=== PATIENT | male | born 1995 | race African-American/Black ===

== ENCOUNTER 2020-05-26 00:32 | Emergency (ER) | payer MEDICAID ==
[~2020-05-26] VITALS: Ht 177.8 cm; Wt 95.3 kg
--- NOTE | 2020-05-26 00:55 | NUR ---
ED Nurse Note: NVD, x2-3 days, no abdominal pain, unable to tolerate anything by mouth, aox4, ambulatory, febrile on triage all other vitals stable
[2020-05-26 01:03] VITALS: BP 121/74
--- NOTE | 2020-05-26 01:04 | NUR ---
pt aox3 c/o n/v/d. states he's only able to keep water down. v/s stable. pt in no distress. will continue to monitor pt
--- NOTE | 2020-05-26 01:06 | Emergency Room Report ---
History of Present Illness General Chief Complaint: Nausea, Vomiting, and Diarrhea Source: Patient Present Illness HPI This is a 25-year-old male with no past medical history. He presents with chief complaint of nausea and vomiting. Onset for last 3 to 4 days. Unable keep anything down. He has no pain. No fever or chills. He also complained of some mild diarrhea. Denies any recent alcohol or drug use. Never had this problem before. No prior abdominal surgery. Allergies: Coded Allergies: No Known Allergies (Unverified , 05/26/20) COVID-19 Screening Contact w/high risk pt: No Experienced COVID-19 symptoms?: No COVID-19 Testing performed REQUISITION APPROVER: No Patient History Past Medical History: see triage record, old chart reviewed Past Surgical History: none Pertinent Family History: none Social History: Denies: smoking Immunizations: other Reviewed Nursing Documentation: PMH: Agreed; PSxH: Agreed Nursing Documentation-PMH Hx Cardiac Problems: No Hx Hypertension: No Hx Pacemaker: No Hx Asthma: No Hx COPD: No Hx Diabetes: No Hx Cancer: No Hx Gastrointestinal Problems: No Hx Dialysis: No History Of Psychiatric Problem: No Hx Neurological Problems: No Hx Cerebrovascular Accident: No Hx Seizures: No Review of Systems Eye: Denies: eye pain, blurred vision ENT: Denies: ear pain, nose congestion, throat swelling Respiratory: Denies: cough, shortness of breath Cardiovascular: Denies: chest pain, palpitations Gastrointestinal: Reports: nausea, vomiting; Denies: abdominal pain, diarrhea Musculoskeletal: Denies: back pain, joint pain Skin: Denies: rash Neurological: Denies: headache, numbness Endocrine: Denies: increased thirst, increased urine Hematologic/Lymphatic: Denies: easy bruising All Other Systems: negative except mentioned in HPI Physical Exam Vital Signs Date Time Temp Pulse Resp B/P (MAP) Pulse Ox O2 Delivery O2 Flow Rate FiO2 05/26/20 00:43 101.8 88 20 121/74 (90) 100 Room Air Vitals with fever Sp02 EP Interpretation: reviewed, normal General Appearance: well appearing, no apparent distress, alert Head: normocephalic, atraumatic Eyes: bilateral eye PERRL, bilateral eye EOMI ENT: hearing grossly normal, normal pharynx Neck: full range of motion, supple, no meningismus Respiratory: chest non-tender, lungs clear, normal breath sounds Cardiovascular #1: regular rate, rhythm, no murmur Gastrointestinal: normal bowel sounds, non tender, no mass, no organomegaly, no bruit, non-distended Musculoskeletal: back normal, normal range of motion, gait/station normal Psychiatric: mood/affect normal Medical Decision Making Diagnostic Impression: Primary Impression: Nausea, vomiting, and diarrhea ER Course Patient presents with nausea and vomiting. Laboratory data is unremarkable. Elevated leukocyte and basophil count probably points toward more ago viral illness. His CT scans nonspecific. He has no abdominal pain right now. I doubt appendicitis in this patient. No evidence of an acute abdomen or obstruction. He is eating drinking now. Will discharge home. CT/MRI/US Diagnostic Results CT/MRI/US Diagnostic Results : Imaging Test Ordered: CT abdomen pelvis Impression Read by radiologist. Appendix measures up to 0.6 cm without surrounding inflammation. Last Vital Signs Date Time Temp Pulse Resp B/P (MAP) Pulse Ox O2 Delivery O2 Flow Rate FiO2 05/26/20 01:03 101.8 20 121/74 100 Room Air 05/26/20 00:43 88 Status: improved Disposition: HOME, SELF-CARE Condition: Stable Scripts Ibuprofen* (MOTRIN*) 600 Mg Tablet 600 MG ORAL Q6H PRN for For Pain, #30 TAB 0 Refills Prov: Uzair Hdz MD 05/26/20 Ondansetron (Zofran) 4 Mg Tablet 4 MG ORAL Q6H PRN for Nausea & Vomiting, #10 TAB 0 Refills Prov: Uzair Hdz MD 05/26/20 Referrals: NOT CHOSEN [facility]/,REFERRING (PCP) Additional Instructions: Advance diet as tolerated. Follow-up with your doctor in 2 to 3 days for rechec k. Return if worse. Uzair Hdz MD May 26, 2020 01:06
[2020-05-26 01:11] LABS: BASOPHILS % (AUTO) 2.4 % (0.0-2.0); EOSINOPHILS % (AUTO) 0.7 % (0.0-3.0); HEMATOCRIT 47.3 % (42.0-52.0); HEMOGLOBIN 16.4 G/DL (14.2-18.0); LYMPHOCYTES % (AUTO) 22.8 % (20.0-45.0); MEAN CORPUSCULAR VOLUME 88 FL (80-99); MONOCYTES % (AUTO) 13.7 % (1.0-10.0); NEUTROPHILS % (AUTO) 60.5 % (45.0-75.0); PLATELET COUNT 189 K/UL (150-450); RED BLOOD COUNT 5.39 M/UL (4.70-6.10); WHITE BLOOD COUNT 7.4 K/UL (4.8-10.8)
--- NOTE | 2020-05-26 01:12 | NUR ---
pt medicated per mar
[2020-05-26 01:18] LABS: APPEARANCE,URINE CLEAR; BILIRUBIN, URINE NEGATIVE (NEGATIVE); COLOR,URINE PALE YELLOW; GLUCOSE, URINE (UA) NEGATIVE (NEGATIVE); KETONES,URINE 3+ (NEGATIVE); LEUKOCYTE ESTERASE ,URINE NEGATIVE (NEGATIVE); NITRITE,URINE NEGATIVE (NEGATIVE); PH,URINE 6 (4.5-8.0); PROTEIN,URINE 2+ (NEGATIVE); UROBILINOGEN,URINE NORMAL MG/DL (0.0-1.0)
[2020-05-26 01:23] LABS: ANION GAP 11 mmol/L (5-15); BLOOD UREA NITROGEN 11 mg/dL (7-18); CALCIUM 9.6 MG/DL (8.5-10.1); CARBON DIOXIDE 25 MMOL/L (21-32); CHLORIDE 99 MMOL/L (98-107); CREATININE 1.5 MG/DL (0.55-1.30); POTASSIUM 3.5 MMOL/L (3.5-5.1); SODIUM 135 MMOL/L (136-145)
[2020-05-26 01:27] LABS: ALANINE AMINOTRANSFERASE 24 U/L (12-78); ALBUMIN/GLOBULIN RATIO 0.9 (1.0-2.7); ALKALINE PHOSPHATASE 89 U/L (46-116); ASPARTATE AMINO TRANSFERASE 18 U/L (15-37); BILIRUBIN,TOTAL 0.5 MG/DL (0.2-1.0)
--- NOTE | 2020-05-26 02:27 | Diagnostic Imaging Report ---
EXAM: CT Abdomen and Pelvis Without Intravenous Contrast CLINICAL HISTORY: ABD PAIN Additional clinical history: Vomiting TECHNIQUE: Axial computed tomography images of the abdomen and pelvis without intravenous contrast. CTDI is 10.40 mGy and DLP is 554.40 mGy-cm. One or more of the following dose reduction techniques were used: automated exposure control, adjustment of the mA and/or kV according to patient size, use of iterative reconstruction technique. COMPARISON: No prior studies are available for comparison FINDINGS: Linear scarring of the left lower lobe. No pleural effusion of the visualized lung bases. Solid organ evaluation is limited due to noncontrast technique. The unenhanced liver, gallbladder, pancreas, spleen, adrenals, and kidneys are unremarkable. There is no hydronephrosis. Evaluation of the bowel is markedly limited due to lack of oral contrast. Stomach is underdistended, limiting evaluation. There is no small bowel distention to suggest obstruction. The appendix measures up to 0.6 cm, borderline, without significant surrounding inflammation. However, there is a subcentimeter nodule associated with the body of the appendix measuring 0.6 cm on image 101 series 3, suboptimally characterized due to lack of contrast. This finding may represent a periappendiceal node versus other mass lesion associated with the appendix. Further evaluation with contrast-enhanced CT or MR is recommended for better characterization. There is no ascites or free air. Additional small volume nodes are identified throughout the abdomen and pelvis. Urinary bladder is underdistended, limiting evaluation. Prostate size is within normal limits. Few phleboliths are seen of the pelvis. No aneurysm of the abdominal aorta is identified. There is an apparent ill- defined sclerosis and lucency of the sacrum, left greater than right, nonspecific, image 103 series 3. IMPRESSION: Appendix measures up to 0.6 cm, borderline, without significant surrounding inflammation. However, there is a subcentimeter nodule associated with the body of the appendix measuring approximate 0.6 cm on image 101 series 3, suboptimally characterized due to lack of contrast. This finding may represent a periappendiceal node versus other mass lesion associated with the appendix. Further evaluation with contrast- enhanced CT or MR is recommended for better characterization. MRI of would require thin sections for evaluation of this finding. Apparent ill-defined sclerosis and lucency of the sacrum, left greater than right, nonspecific, image 103 series 3.Correlation with bone scan can be obtained for further characterization. Dr. Mg was informed of the signs and 05/26/2020 at 2:24 AM. <MYCVCSECTION> Communications: 05/26/20 02:24 Call Doctor Regarding Above results, called Dr. Mg on 05/26 02:24 (-07:00)
[2020-05-26] MEDS ORDERED: ZOFRAN4 MG ORAL (02:39)
[2020-05-26] MEDS ORDERED: IBUPROFEN600 M1 ORAL (02:41)
[2020-05-26] MEDS ORDERED: Acetaminophen 500mg (ES) tab ORAL ONE ×2 (02:44→02:45)
--- NOTE | 2020-05-26 02:57 | NUR ---
pt aox3. given and understands discharge instructions. v/s stable. pt in no distress. ambulatory out w steady gait
== END 2020-05-26 03:00 | disposition home or self-care (01) ==
LOC: EMR 00:45
DX: R11.2 Nausea with vomiting, unspecified (principal); R19.7 Diarrhea, unspecified
CPT/HCPCS: 36415; 74176; 80053; 81003; 83690; 85025; 96361; 96374; J2405; J7030; Z7502; 99284